=== PATIENT | female | born 1940 | race Caucasian/White ===

== ENCOUNTER 2016-03-14 18:01 | Outpatient (CLI) | payer OTHER ==
[2015-11-01 17:32] VITALS: BP 134/69
--- NOTE | 2016-03-14 20:55 | Diagnostic Imaging Report ---
[facility] [address] [facility].[address] [address] ~ ~ ~ ~ Report Submission Date: Mar 14, 2016 7:32:58 PM SUMMER COUNSELOR Patient ~ Study Name: CROW WOLF ~ Date: Mar 14, 2016 6:56:07 PM SUMMER COUNSELOR ~ Modality Type: US Gender: F ~ Description: ULTRASOUND UNLISTED PROC : 40 ~ Institution: [facility] Physician: JASON HOUSTON ~ ~ ~ ~ Ultrasound of the left upper arm Clinical history: Pain Routine ultrasound the left upper arm posteriorly fail to demonstrate any evidence of visible mass lesion, no fluid collection or hematoma. No definite abnormalities. No vascularity. Impression: No definite evidence of abnormalities in the area of the left upper arm . ~ Electronically signed on Mar 14, 2016 7:32:58 PM SUMMER COUNSELOR by: Dominick HUDSON
== END 2016-03-14 18:02 ==
LOC: RAD 18:01
PROVIDERS: ATTEND Family Medicine
DX: R10.9 Unspecified abdominal pain (principal)

== ENCOUNTER 2017-04-13 10:00 | Emergency (ER) | payer OTHER ==
[2017-04-13 10:22] VITALS: BP 154/66
--- NOTE | 2017-04-13 10:31 | ED Physician Documentation ---
Skin Rash - HISTORIAN Historian: patient - HPI Stated Complaint: rash Chief Complaint: Allergic Reaction Onset: other (2 weeks ) Timing: still present Duration: persistent since Location: trunk, RUE, LUE, RLE, LLE, other (abdomen and upper back ) Quality: itchy Identified Cause?: No (She did starte a new laundry detergent one month ) Where: home Context: Other Exposure: infectious illness (she had the flu "and everyone i know who had the flu had this rash" ) - ROS CONST: recent illness CVS/RESP: none EYES/ENT: none GI/: denies: abdominal pain, problems urinating, vomiting, nausea MS/SKIN/LYMPH: rash NEURO/PSYCH: none - PAST HX Past History: other (anxiety ) Surgeries/Procedures: Yes (Hysterectomy and Ivone) Allergies/Adverse Reactions: Allergies Allergy/AdvReac Type Severity Reaction Status Date / Time doxycycline Allergy Mild Verified 04/13/17 10:14 rabeprazole sodium Allergy Mild Verified 04/13/17 10:14 [From Aciphex] amantadine Allergy Verified 04/13/17 10:14 ciprofloxacin Allergy Verified 04/13/17 10:14 erythromycin base Allergy Verified 04/13/17 10:14 [From Anthony-Tab] fluticasone Allergy Verified 04/13/17 10:14 hydrocodone Allergy Verified 04/13/17 10:14 nitrofurantoin Allergy Verified 04/13/17 10:14 pantoprazole sodium Allergy Verified 04/13/17 10:14 [From Protonix] Penicillins Allergy Verified 04/13/17 10:14 ranitidine Allergy Verified 04/13/17 10:14 omperazole Allergy Unknown Uncoded 04/13/17 10:14 SMZ TMP Allergy Uncoded 04/13/17 10:14 Home Medications: Ambulatory Orders Medication Instructions Recorded Aspirin [Walter] 81 mg PO D 12/01/14 Nitroglycerin [Nitrostat] 0.4 mg SL PRN PRN 12/01/14 Antiarthritic Combination No.2 500 mg PO BID 04/13/17 [Glucosamine-Chondroitin] Cholecalciferol [Vitamin D-3] 1,000 mg PO DAILY 04/13/17 [place]-3 Fatty Acids/Fish Oil [Fish 1,000 mg PO DAILY 04/13/[address] 1,000 mg Softgel] - SOCIAL HX Smoking History: non-smoker Alcohol Use: none Drug Use: none - FAMILY HX Family History: none - VITAL SIGNS Vital Signs: Vital Signs Temp Pulse Resp BP Pulse Ox 97.9 F 82 16 154/66 99 04/13/17 10:17 04/13/17 10:17 04/13/17 10:17 04/13/17 10:17 04/13/17 10:17 - REVIEWED ASSESSMENTS Nursing Assessment Reviewed: Yes Vitals Reviewed: Yes Progress - Progress Progress: 1035: Marlee is upset that the provider is not a physician. She is frustrated due to the amount of medication being discussed. She would like to know exactly what type of reaction she can have to all the medications prescribed. Discussed at length that she can have a reaction to any med or item she is exposed to at any time. She would like to know the name of the Dr that I work under . Dr Pimentel is my collaborating physician. DG Skin Rash Physical Exam - EXAM General Appearance: no acute distress Skin: skin rash, erythema, other (Upper back (midline) bilateral shoulders, back , right hip and left lower back and bilateral lower arms. NO rash on face or hands ) Symptoms: No: warmth, tenderness, weeping Extremities: non-tender, nml ROM, no edema EENT: eyes nml inspection Neck: trachea midline Respiratory: no resp distress, chest non-tender, breath sounds normal Abdomen: non-tender Neuro/Psych: oriented x3, CN's nml as tested, motor nml, sensation nml, mood/ affect nml Discharge Clincal Impression: Rash and nonspecific skin eruption Referrals: Salvatore Acevedo MD [Primary Care Provider] - 2 Days Comments: DepoMedrol injection Start Medrol Dose pack 4 mg (as directed) Claritin 10 mg day x 14 days Zantac 150 mg BID x 14 days Laundry Detergent - no scent or dye Follow up with PCP in a 3-4 days Condition: Stable Disposition: 01 HOME, SELF-CARE Decision to Admit: NO Date of Decison to Admit: 04/13/17 Decision Time: 10:43
[2017-04-13] MEDS ORDERED: methylPREDNISolone ACETATE 40 MG/ML VIAL IM ONE ×2 (10:38→10:40)
== END 2017-04-13 10:54 | disposition home or self-care (01) ==
LOC: ED 10:00
DX: R21 Rash and other nonspecific skin eruption (principal)
CPT/HCPCS: 96372; 99283; J1030

== ENCOUNTER 2017-10-08 14:25 | Emergency (ER) | payer OTHER ==
[2017-10-08 14:50] VITALS: BP 164/82
[2017-10-08 14:57] LABS: BASOPHILS % 0.5 (0.0-1.5); EOSINOPHILS % 1.1 % (0.0-6.8); MEAN CORPUSCULAR VOLUME 92.6 fl (80.0-100.0); MONOCYTES % 6.5 % (0.0-11.0); NEUTROPHILS # 3.4 # k/uL (1.4-7.7)
[2017-10-08] MEDS: 0.9 % SODIUM CHLORIDE 1,000 ML IV ONE ×2 (15:00→15:05)
--- NOTE | 2017-10-08 15:02 | ED Physician Documentation ---
General Adult - HISTORIAN Historian: patient - HPI Stated Complaint: Chest pain/SOA Chief Complaint: Chest Pain Onset: other (overall this started in Apr ) Timing: still present Severity: mild Further Comments: yes (She states she had a skin rash in Apr and she was given a steroid shot and then she was to start Dose pack after which she reports she only could take 3 days into this pack due to the fatigue. She states she had overall rash from the steriod and she had "such terrible fatigue I couldnt stand it" she states she did see her Dr Gaming and he told her "I was fine" She reports she has continued to have fatigue and sometimes chest pain.) Last known Well Code/Unknown Code: Unknown - ROS CONST: weakness EYES/ENT: nasal congestion. denies: problems with vision, sore throat CVS/RESP: chest pain, shortness of breath. denies: cough GI/: problems urinating (she reports she has had issues with urination since her bladder sling over 5 years ago but her urologist continues to tell her this is fine ). denies: vomiting, nausea, diarrhea MS/SKIN/LYMPH: denies: rash NEURO/PSYCH: denies: headache, fainting, dizziness, difficulty walking, difficulty with speech, anxiety, depression - PAST HX Past History: none Surgeries/Procedures: , cholecystectomy Immunizations: UTD Allergies/Adverse Reactions: Allergies Allergy/AdvReac Type Severity Reaction Status Date / Time doxycycline Allergy Mild Verified 10/08/17 14:52 rabeprazole sodium Allergy Mild Verified 10/08/17 14:52 [From Aciphex] amantadine Allergy Verified 10/08/17 14:52 ciprofloxacin Allergy Verified 10/08/17 14:52 erythromycin base Allergy Verified 10/08/17 14:52 [From Anthony-Tab] fluticasone Allergy Verified 10/08/17 14:52 hydrocodone Allergy Verified 10/08/17 14:52 levofloxacin Allergy Verified 10/08/17 14:52 nitrofurantoin Allergy Verified 10/08/17 14:52 pantoprazole sodium Allergy Verified 10/08/17 14:52 [From Protonix] Penicillins Allergy Verified 10/08/17 14:52 ranitidine Allergy Verified 10/08/17 14:52 omperazole Allergy Unknown Uncoded 10/08/17 14:52 SMZ TMP Allergy Uncoded 10/08/17 14:52 Home Medications: Ambulatory Orders Medication Instructions Recorded Aspirin [Walter] 81 mg PO D 12/01/14 Nitroglycerin [Nitrostat] 0.4 mg SL PRN PRN 12/01/14 Antiarthritic Combination No.2 500 mg PO BID 04/13/17 [Glucosamine-Chondroitin] Cholecalciferol [Vitamin D-3] 1,000 mg PO DAILY 04/13/17 [place]-3 Fatty Acids/Fish Oil [Fish 1,000 mg PO DAILY 04/13/[address] 1,000 mg Softgel] - SOCIAL HX Smoking History: non-smoker Alcohol Use: none Drug Use: none - FAMILY HX Family History: No - VITAL SIGNS Vital Signs: Vital Signs Temp Pulse Resp BP Pulse Ox 98.0 F 98 H 17 164/82 100 10/08/17 14:25 10/08/17 14:25 10/08/17 14:25 10/08/17 14:25 10/08/17 14:25 - REVIEWED ASSESSMENTS Nursing Assessment Reviewed: Yes Vitals Reviewed: Yes Progress - Progress Progress: 1507: States she had a cheeseburger before arrival and she would like something for heartburn. She has been out of her medication DG 1700: Discussed results and plan . She is agreeable DG ED Results Lab/Radiology - Lab Results Lab Results: Lab Results 10/08/17 14:46 WBC 8.00 K/ul K/ul (4.00-12.00) RBC 4.06 M/ul M/ul (3.90-5.20) Hgb 12.2 g/dL g/dL (12.0-16.0) Hct 37.6 % % (34.5-46.5) MCV 92.6 fl fl (80.0-100.0) MCH 30.0 pg pg (28.0-34.0) MCHC 32.4 g/dL g/dL (30.0-36.0) RDW 14.1 % % (11.3-14.3) Plt Count 409 K/mm3 H K/mm3 (130-400) Neut % (Auto) 42.8 % % (39.0-79.0) Lymph % (Auto) 46.5 % % (16.0-50.0) [place] % (Auto) 6.5 % % (0.0-11.0) Eos % (Auto) 1.1 % % (0.0-6.8) Baso % (Auto) 0.5 (0.0-1.5) Neut # (Auto) 3.4 # k/uL # k/uL (1.4-7.7) Lymph # (Auto) 3.7 # k/uL # k/uL (0.6-4.0) [place] # (Auto) 0.5 # k/uL # k/uL (0.0-0.9) Eos # (Auto) 0.1 # k/uL # k/uL (0.0-0.6) Baso # (Auto) 0.0 # k/uL # k/uL (0.0-0.5) Reactive Lymphs % 2.5 % % (0.0-5.0) Reactive Lymphs # 0.2 # k/uL # k/uL (0.0-0.8) - Radiology Radiology Impressions: Examination: Portable chest History: Evaluate lungs. PCXR, LT CHEST/SHOULDER AND DOWN ARM PAIN X1-2 MONTHS (Hx) Comparison exam: None available. Findings: Single view of the chest demonstrates a normal cardiac and mediastinal silhouette. Tortuous aorta. Lung morales without focal infiltrate. No blunting of the costophrenic margins. Osseous structures are appropriate for age. Impression: No acute pulmonary process. Electronically signed on Oct 08, 2017 3:13:20 PM CDT by: Zander Tracey - Orders Orders: ED Orders Category Date Time Status Continuous EKG monitoring Q30M Care 10/08/17 14:46 Ordered Continuous Pulse Oximetry Q30M Care 10/08/17 14:[address] IV Lock 1T Care 10/08/17 14:46 Ordered CHEST 1VIEW [RAD] Stat Exams 10/08/17 Ordered BNP [NT-proBNP] Stat Lab 10/08/17 Ordered CBC/PLATELET/DIFF Routine Lab 10/08/17 14:46 Ordered CMP Routine Lab 10/08/17 14:46 Ordered CREATINE KINASE Routine Lab 10/08/17 14:46 Ordered TROPONIN I (cTnI) Stat Lab 10/08/17 14:46 Ordered UA W/MICRO IF INDICATED Routine Lab 10/08/17 14:55 Ordered 0.9 % Sodium Chloride [Normal Saline] 1,000 ml Med 10/08/17 14:55 Discontinued IV .STK-MED NORMAL SALINE @ 1000 MLS/HR ( 1000ml BOLUS) Med 10/08/17 14:55 Ordered 0.9 % Sodium Chloride [Normal Saline] 1,000 ml IV Q1H Oxygen Daily Oxygen 10/08/17 15:00 Ordered EKG WITH COMPARISON Stat Ther 10/08/17 14:46 Ordered General Adult Physical Exam - PHYSICAL EXAM GENERAL APPEARANCE: no distress EENT: eye inspection normal, ENT inspection normal, pharynx normal, no signs of dehydration, LEX NECK: normal inspection RESPIRATORY: no resp distress, chest non-tender, breath sounds normal CVS: reg rate & rhythm, heart sounds normal, equal pulses, no murmur ABDOMEN: soft, normal bowel sounds, no distension, non-tender BACK: normal inspection, no CVA tenderness SKIN: warm/dry, normal color EXTREMITIES: non-tender, normal range of motion, no evidence of injury, no edema NEURO: oriented X3, CN's nml as tested, motor nml, sensation nml, mood/affect nml, cognition normal Discharge Clincal Impression: Hypokalemia Referrals: Salvatore Acevedo MD [Primary Care Provider] - 2 Days Additional Instructions: 1. Potassium 20 MEQ daily x 5 2. Follow up with PCP in 2 days for lab recheck 3. Monitor symptoms 4. WATER intake 5. Return to ER for any concerns Condition: Stable Disposition: 01 HOME, SELF-CARE Decision to Admit: NO Date of Decison to Admit: 10/08/17 Decision Time: 17:05
[2017-10-08] MEDS: MAG HYDROX/ALUMINUM HYD/SIMETH 30 ML, Lidocaine 2%Visc 15ml 20 MG, PHENobarb/HYOSCY/ATR... PO ONE ×3 (15:08)
[2017-10-08 15:13] LABS: eGFR (African) > 60; eGFR (Non-African) > 60
[2017-10-08] MEDS ORDERED: POTASSIUM CHLORIDE IV ONE (15:23)
[2017-10-08] MEDS: Lidocaine 2%Visc 15ml 20 MG/ML UDC ONE (15:35)
[2017-10-08] MEDS: MAG HYDROX/ALUMINUM HYD/SIMETH 30 ML UDC PO ONE (15:35)
--- NOTE | 2017-10-08 18:17 | Diagnostic Imaging Report ---
RENO HORTON [facility] [address] [facility] [address] [place], [place]. [address] Report Submission Date: Oct 08, 2017 3:13:20 PM CDT Patient Study Name: CROW WOLF Date: Oct 08, 2017 2:55:50 PM CDT Modality Type: DX Gender: F Description: CHEST : 40 Institution: [facility] Physician: RENO HORTON Examination: Portable chest History: Evaluate lungs. PCXR, LT CHEST/SHOULDER AND DOWN ARM PAIN X1-2 MONTHS ( Hx) Comparison exam: None available. Findings: Single view of the chest demonstrates a normal cardiac and mediastinal silhouette. Tortuous aorta. Lung morales without focal infiltrate. No blunting of the costophrenic margins. Osseous structures are appropriate for age. Impression: No acute pulmonary process. Electronically signed on Oct 08, 2017 3:13:20 PM CDT by: Zander HUDSON
== END 2017-10-08 17:35 | disposition home or self-care (01) ==
LOC: ED 14:25
DX: E87.6 Hypokalemia (principal)
CPT/HCPCS: 71045; 80053; 82550; 83880; 84484; 85025; 93005; 96365; 99284; 99285; A9270; J7030; J3480; S1016

== ENCOUNTER 2017-10-13 13:07 | Outpatient (CLI) | payer OTHER | END 2017-10-13 13:10 | LOC: LAB 13:07 | PROVIDERS: ATTEND Family Medicine | DX: E87.6 Hypokalemia (principal) | CPT/HCPCS: 36415; 80048 ==

== ENCOUNTER 2017-10-20 09:34 | Outpatient (CLI) | payer OTHER ==
[2017-10-20 10:09] LABS: eGFR (African) > 60; eGFR (Non-African) > 60
== END 2017-10-20 09:35 ==
LOC: LAB 09:34
PROVIDERS: ATTEND Family Medicine
DX: E87.6 Hypokalemia (principal)
CPT/HCPCS: 36415; 80048